=== PATIENT | male | born 1985 | race Caucasian/White ===

== ENCOUNTER 2024-03-13 10:05 | Outpatient (REF) | payer OTHER, SELFPAY ==
[2024-03-13 10:40] LABS: MANUAL DIFF FLAG NO
[2024-03-13 10:44] LABS: Basophils Percent Auto 0.5 % (0-2); Eosinophils Absolute Auto 0.1 X10*3/uL (0.0-0.4); Eosinophils Percent Auto 1.7 % (0-4); Hemoglobin 14.3 g/dl (14.0-18.0); Imm Gran Abs Auto 0.01 X10*3/uL (0.00-0.03); Imm Gran Pct Auto 0.2 % (0.0-0.4); Lymphocytes Absolute Auto 1.6 X10*3/uL (1.2-4.9); Lymphocytes Percent Auto 27.1 % (20-40); Mean Corpuscular HGB Conc 34.9 g/dl (31.0-36.0); Mean Corpuscular Hemoglobin 30.6 pg (27.0-33.0); Mean Corpuscular Volume 87.6 fL (80.0-98.0); Mean Platelet Volume 9.3 fL (9.4-12.4); Monocytes Absolute Auto 0.4 X10*3/uL (0.1-1.2); Monocytes Percent Auto 5.8 % (2-11); Neutrophils Absolute Auto 3.9 x10*3/uL (2.0-8.3); Neutrophils Percent Auto 64.7 % (45-73); Platelet Count 332 X10*3/uL (160-400); Red Blood Count 4.68 X10*6/uL (4.60-5.80); Red Cell Distribution Width 11.6 % (11.0-16.0)
[2024-03-13 11:49] LABS: Alanine Aminotransferase 27 U/L (0-40); Albumin Level 4.5 g/dL (3.5-5.0); Alkaline Phosphatase 67 U/L (39-117); Anion Gap 14 (12-20); Aspartate Amino Transferase 18 U/L (5-37); Bilirubin Total 0.3 mg/dL (0.0-1.0); Blood Urea Nitrogen 15 mg/dL (9-16); Calcium 10.4 mg/dL (8.4-10.2); Carbon Dioxide 25 mmol/L (22-29); Chloride 105 mmol/L (96-108); Cholesterol 195 mg/dL (<200); Estimated Glomerular Filt Rate > 60; Glucose Fasting 102 mg/dL (60-99); HDL Cholesterol 49 mg/dL (>40); LDL Cholesterol Calculated 133 mg/dL (<100); Potassium 4.5 mmol/L (3.3-5.1); Sodium 139 mmol/L (135-145); Total Protein 7.5 g/dL (6.5-8.0); Triglycerides 68 mg/dL (<150)
== END 2024-03-13 10:06 | disposition home or self-care (01) ==
LOC: HO.10HDL 10:05
PROVIDERS: Visit Provider Internal Medicine
DX: E78.00 Pure hypercholesterolemia, unspecified (principal); K21.9 Gastro-esophageal reflux disease without esophagitis
CPT/HCPCS: 36415; 80053; 80061; 85025

== ENCOUNTER 2025-04-13 15:08 | Outpatient (AMB) | payer OTHER, SELFPAY ==
--- NOTE | 2025-04-13 14:05 | A.OFFPC_ITS ---
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 Father No problems noted. Social History Housing: House Patient Tobacco Use Status: Never used Tobacco e-Cigarette/Vaping Use: Never Used service: No Current occupational status: employed Cognitive needs: No Hearing needs: No Vision needs: Yes (rx glasses) Questionnaire PHQ-9 Over the last 2 weeks, how often have you been bothered by any of the following problems? 1. Little interest or pleasure in doing things: not at all 2. Feeling down, depressed, or hopeless: not at all 3. Trouble falling or staying asleep, or sleeping too much: not at all 4. Feeling tired or having little energy: not at all 5. Poor appetite or overeating: not at all 6. Feeling bad about yourself - or that you are a failure or have let yourself or your family down: not at all 7. Trouble concentrating on things, such as reading the newspaper or watching television: not at all 8. Moving or speaking so slowly that other people could have noticed. Or the opposite - being so fidgety or restless that you have been moving around a lot more than usual: not at all 9. Thoughts that you would be better off or of hurting yourself in some way: not at all Total score: 0 Source: Developed by Drs. Román Fuller, Helen Juarez, Bill Mcintyre and colleagues, with an educational leslie from [employer]. Thrive Questionnaire Date Thrive assessed: 04/13/25 I am a: Patient Within the past 12 months, did the food you bought not last and you didn't have the money to get more?: Never true Within the past 12 months, did you worry whether your food would run out before you got money to buy more?: Never true Do you have trouble paying for medicines?: No Do you have trouble getting transportation to medical appointments?: No Do you have trouble paying your heating and electricity bill?: No Do you have trouble taking care of your child, family member or friend?: No Do you have trouble with day-to-day activities such as bathing, preparing meals, shopping, managing finances, etc.?: No Are you currently unemployed and looking for a job?: No THRIVE Score: 0 AUDIT C Alcohol Use Questionnaire (AUDIT-C) 1. How often do you have a drink containing alcohol?: Never 3. How often do you have six or more drinks on one occasion?: Never Total Score: 0 MADHURI-7 AMB Questionnaire MADHURI-7 Date MADHURI - 7 assessed: 04/13/25 Feeling nervous, anxious, or on edge: 0 = Not at all Not being able to stop or control worryin = Not at all Worrying too much about different things: 0 = Not at all Trouble relaxin = Not at all Being so restless that it is hard to sit still: 0 = Not at all Becoming easily annoyed or irritable: 0 = Not at all Feeling afraid as if something awful might happen: 0 = Not at all Total MADHURI-7 score (0-4 normal; 5-9 mild; 10-14 moderate; 15-21 severe): 0 Source: Developed by Drs. Román Fuller, Helen Juarez, Bill Mcintyre and colleagues, with an educational leslie from [employer]. Physical exam (Primary Care) Vital Signs: Last Vital Signs Temp 97.2 F 04/13/25 15:16 Pulse 75 04/13/25 15:16 BP 122/80 04/13/25 15:16 Pulse Ox 97 04/13/25 15:16 Oxygen Delivery Method Room Air 04/13/25 15:16 BMI result Body Mass Index 26.2 Tobacco/Smoking Status: Tobacco use Status Tobacco use date assessed 04/13/25 04/13/25 14:06 Patient Tobacco Use Status Never used Tobacco 04/13/25 14:06 e-Cigarette/Vaping Use Never Used 04/13/25 14:06 PHQ-9: PHQ-9 Score PHQ-9: Total score 0 04/13/25 15:19 Thrive Assessment: Date of Thrive Assessment Date Thrive assessed 04/13/25 04/13/25 14:06 Coding Level of Care Code New Pt Level 4 (28182) Complex EM visit Add On G2211 Diagnoses Hyperlipidemia E78.5 Assessment & Plan Assessment & Plan (1) Hyperlipidemia: Code(s): E78.5 - Hyperlipidemia, unspecified Category: Medical Plan: BW ordered. Will call with results Plan History of Present Illness - The patient is a 39-year-old male presenting for a wellness visit. - Cholesterol levels were reported as elevated during a past consultation with Dr. Davis, but follow-up was not completed. - The patient denies any symptoms or health concerns associated with elevated cholesterol. - The family history is notable for heart disease in the father and diabetes in the mother. Social History - The patient is employed as a skilled nursing professional. - The patient has a supportive family environment with four children. - The patient denies the use of tobacco products. - The patient did not report information regarding alcohol use or diet. Review of Systems - Cardiovascular: Denies chest pain, palpitations, or shortness of breath. - Endocrine: Denies issues such as polyuria or weight changes. Physical Exam General: Cooperative and healthy appearing Nutritional Appearance: Well nourished Orientation/consciousness: Patient oriented x3 Limitations: No limitations Head: Normal to inspection General: Appearance normal, both eyes and all related structures Neck: Normal visual inspection Chest: Normal palpation of entire chest wall Respiratory: Normal respiratory effort Neurology: Patient oriented x3 Results Plan 1. Hyperlipidemia - Repeat fasting lipid panel. - Instruct patient to fast after midnight before the test. - Determine further management based on results, which may include lifestyle changes or medications. - Educated patient on follow-up importance. Discussion Notes I discussed with the patient the plan to repeat the fasting cholesterol levels due to previously noted elevation. I advised him to fast after midnight before the lipid panel to ensure accurate test results. Once results are received, we will discuss further management options, including lifestyle modifications and possible medication, to effectively manage hyperlipidemia. The patient is aware of his family history and the impact it may have on his cardiovascular risk, and he understands the importance of regular monitoring. Patient Instructions - Fast (no food or drinks except water) after midnight for the blood test. - Get the fasting cholesterol test done as instructed. - Wait for a call with the test results and further instructions. - Follow up on results and management plan. Orders: Orders Basic Metabolic Panel Today E78.5 - Hyperlipidemia, unspecified Liver Panel Today E78.5 - Hyperlipidemia, unspecified Thyroid Stimulating Hormone Today E78.5 - Hyperlipidemia, unspecified Lipid Panel Today E78.5 - Hyperlipidemia, unspecified UA and rflx microscopic Today E78.5 - Hyperlipidemia, unspecified Complete Blood Count no Diff Today E78.5 - Hyperlipidemia, unspecified
[2025-04-13 15:16] VITALS: BP 122/80; PULSE 75; TEMP 36.2; O2SAT 97; BMI 26.2
--- OUTSIDE RECORDS SUMMARY | 2025-04-13 16:23 | XMS_ITS | Patient Health Record ---
Author Organization [facility] Address [address] [place] [address] Support Name Relationship Address Phone DESHAWN CASTILLO Guarantor Unknown [phone] Reason For Referral No Information Plan Of Treatment No Information Insurance Providers Payer Name Payer Address Payer Phone Subscriber Number Group Number Insured Name Patient Relationship to Insured Coverage Start Date Coverage End Date CARES Act DESHAWN CASTILLO Self - patient is the insured
== END 2025-04-13 15:52 | disposition home or self-care (01) ==
LOC: HO.HMCHD 15:09
PROVIDERS: PCP Internal Medicine; Visit Provider Internal Medicine
DX: E78.5 Hyperlipidemia, unspecified (principal)

== ENCOUNTER → 2025-04-13 15:08 | Outpatient (BNVA) | payer OTHER, SELFPAY | PROVIDERS: PCP Internal Medicine; Visit Provider Internal Medicine | DX: Z00.00 Encounter for general adult medical examination without abnormal findings (principal); E78.5 Hyperlipidemia, unspecified | CPT/HCPCS: 99202 ==

== ENCOUNTER 2025-04-15 10:24 | Outpatient (REF) | payer OTHER, SELFPAY ==
--- OUTSIDE RECORDS SUMMARY | 2025-04-15 11:02 | XMS_ITS | Patient Health Record ---
Author Organization [facility] Address [address] [place] [address] Support Name Relationship Address Phone DESHAWN CASTILLO Guarantor Unknown [phone] Reason For Referral No Information Plan Of Treatment No Information Insurance Providers Payer Name Payer Address Payer Phone Subscriber Number Group Number Insured Name Patient Relationship to Insured Coverage Start Date Coverage End Date CARES Act DESHAWN CASTILLO Self - patient is the insured
[2025-04-15 12:33] LABS: Appearance Urine Clear; Color Urine Yellow; Glucose Urine UA Negative (Negative); Hematocrit 39.5 % (42.0-52.0); Hemoglobin 14.1 g/dl (14.0-18.0); Leukocyte Esterase Urine Negative (Negative); Mean Corpuscular HGB Conc 35.7 g/dl (31.0-36.0); Mean Corpuscular Hemoglobin 30.5 pg (27.0-33.0); Mean Corpuscular Volume 85.3 fL (80.0-98.0); Mean Platelet Volume 9.7 fL (9.4-12.4); Nitrite Urine Negative (Negative); PH 6.5 (5.0-9.0); Platelet Count 263 X10*3/uL (160-400); Red Blood Count 4.63 X10*6/uL (4.60-5.80); Red Cell Distribution Width 11.4 % (11.0-16.0); Specific Gravity - Urine 1.025 (1.005-1.025); UMIC TRIGGER UA YES; Urine Blood Trace (Negative); Urine Ketones Negative (Negative); Urine Protein Negative (Neg-Trace); White Blood Count 5.9 X10*3/uL (4.8-10.8)
[2025-04-15 12:38] LABS: Bacteria Urine None Seen (None Seen); Hyaline Casts Urine 0-2 /LPF (0-2); Squamous Epithelial Cell Urine 0-2 /HPF (0-2); WBC Urine 0-5 /HPF (0-5)
[2025-04-15 15:05] LABS: Thyroid Stimulating Hormone 1.22 uIU/mL (0.32-4.0)
[2025-04-15 15:08] LABS: Anion Gap 9 (12-20)
[2025-04-15 15:13] LABS: Alanine Aminotransferase 37 U/L (0-40); Albumin Level 4.7 g/dL (3.5-5.0); Alkaline Phosphatase 56 U/L (39-117); Aspartate Amino Transferase 27 U/L (5-37); Bilirubin Direct 0.1 mg/dL (0.0-0.5); Bilirubin Total 0.5 mg/dL (0.0-1.0); Blood Urea Nitrogen 18 mg/dL (9-16); Calcium 9.5 mg/dL (8.4-10.2); Carbon Dioxide 28 mmol/L (22-29); Chloride 106 mmol/L (96-108); Cholesterol 214 mg/dL (<200); Estimated Glomerular Filt Rate > 60; Glucose Random 99 mg/dL (60-115); HDL Cholesterol 53 mg/dL (>40); LDL Cholesterol Calculated 148 mg/dL (<100); Potassium 4.2 mmol/L (3.3-5.1); Sodium 139 mmol/L (135-145); Total Protein 7.4 g/dL (6.5-8.0); Triglycerides 66 mg/dL (<150)
== END 2025-04-15 10:25 | disposition home or self-care (01) ==
LOC: HO.10HDL 10:24
PROVIDERS: Visit Provider Internal Medicine
DX: E78.5 Hyperlipidemia, unspecified (principal)
CPT/HCPCS: 36415; 80048; 80061; 80076; 81001; 84443; 85027

== ENCOUNTER 2025-05-05 15:37 | Outpatient (AMB) | payer OTHER, SELFPAY ==
--- NOTE | 2025-05-05 14:58 | MHC.PC.OV ---
Intake Visit Reasons: Discuss medication Natural Resources Specialist Required: No Allergies No Known Allergies Allergy (Verified 05/05/25 14:58) Tobacco use date assessed: 04/13/25 Dental Screening Dental Screen Date: 04/13/25 HPI Discuss medication HPI Details 39 yr old male wishes to discuss his health via telehealth. Recent bw shows elevated cholesterol. Patient is hesitating to start statins due to his younger age. Non smoker, does not consume alcohol. Family history positive for CAD with father having an acute ND at age 45 PFSH Medical History Hyperlipidemia Family History Mother No problems noted. Father No problems noted. Social History Housing: House Patient Tobacco Use Status: Never used Tobacco e-Cigarette/Vaping Use: Never Used service: No Current occupational status: employed Cognitive needs: No Hearing needs: No Vision needs: Yes (rx glasses) Questionnaire PHQ-9 Over the last 2 weeks, how often have you been bothered by any of the following problems? 1. Little interest or pleasure in doing things: not at all 2. Feeling down, depressed, or hopeless: not at all 3. Trouble falling or staying asleep, or sleeping too much: not at all 4. Feeling tired or having little energy: not at all 5. Poor appetite or overeating: not at all 6. Feeling bad about yourself - or that you are a failure or have let yourself or your family down: not at all 7. Trouble concentrating on things, such as reading the newspaper or watching television: not at all 8. Moving or speaking so slowly that other people could have noticed. Or the opposite - being so fidgety or restless that you have been moving around a lot more than usual: not at all 9. Thoughts that you would be better off or of hurting yourself in some way: not at all Total score: 0 Source: Developed by Drs. Román Fuller, Helen Juarez, Bill Mcintyre and colleagues, with an educational leslie from [employer]. Thrive Questionnaire Date Thrive assessed: 06/02/25 I am a: Patient Within the past 12 months, did the food you bought not last and you didn't have the money to get more?: Never true Within the past 12 months, did you worry whether your food would run out before you got money to buy more?: Never true Do you have trouble paying for medicines?: No Do you have trouble getting transportation to medical appointments?: No Do you have trouble paying your heating and electricity bill?: No Do you have trouble taking care of your child, family member or friend?: No Do you have trouble with day-to-day activities such as bathing, preparing meals, shopping, managing finances, etc.?: No Are you currently unemployed and looking for a job?: No THRIVE Score: 0 AUDIT C Alcohol Use Questionnaire (AUDIT-C) 1. How often do you have a drink containing alcohol?: Never 3. How often do you have six or more drinks on one occasion?: Never Total Score: 0 MADHURI-7 AMB Questionnaire MADHURI-7 Date MADHURI - 7 assessed: 04/13/25 Feeling nervous, anxious, or on edge: 0 = Not at all Not being able to stop or control worryin = Not at all Worrying too much about different things: 0 = Not at all Trouble relaxin = Not at all Being so restless that it is hard to sit still: 0 = Not at all Becoming easily annoyed or irritable: 0 = Not at all Feeling afraid as if something awful might happen: 0 = Not at all Total MADHURI-7 score (0-4 normal; 5-9 mild; 10-14 moderate; 15-21 severe): 0 Source: Developed by Drs. Román Fuller, Helen Juarez, Bill Mcintyre and colleagues, with an educational leslie from [employer]. Physical exam (Primary Care) Tobacco/Smoking Status: Tobacco use Status Tobacco use date assessed 04/13/25 05/05/25 15:21 Patient Tobacco Use Status Never used Tobacco 05/05/25 15:21 e-Cigarette/Vaping Use Never Used 05/05/25 15:21 PHQ-9: PHQ-9 Score PHQ-9: Total score 0 05/05/25 15:21 Thrive Assessment: Date of Thrive Assessment Date Thrive assessed 04/13/25 05/05/25 15:21 Telehealth Telehealth Telehealth Platform: Telephone Location of provider rendering services: practice address Location of patient: address on file Patient Identification confirmed using: Name, : Yes Telehealth method: voice only Patient verbally consented to treatment: Yes Patient verbally consented to billing insurance company: Yes Patient informed of any privacy concerns related to visit: Yes Minutes spent on Phone/Video with Pt.: 15 Results Reviewed Results Reviewed: Lab work Coding Level of Care Code Tele Est Pt Level 3 (99266) Complex EM visit Add On G2211 Diagnoses Hyperlipidemia E78.5 Assessment & Plan Assessment & Plan (1) Hyperlipidemia: Code(s): E78.5 - Hyperlipidemia, unspecified Category: Medical Plan: Patient declined to start statins. Counselling on the importance of diet and exercise done
--- OUTSIDE RECORDS SUMMARY | 2025-05-05 18:46 | XMS_ITS | Patient Health Record ---
Author Organization [facility] Address [address] [[email or web address] [place] [address] Support Name Relationship Address Phone DESHAWN CASTILLO Guarantor Unknown [phone] Reason For Referral No Information Plan Of Treatment No Information Insurance Providers Payer Name Payer Address Payer Phone Subscriber Number Group Number Insured Name Patient Relationship to Insured Coverage Start Date Coverage End Date CARES Act DESHAWN CASTILLO Self - patient is the insured
== END 2025-05-05 16:44 | disposition home or self-care (01) ==
LOC: HO.HMCSH 15:37
PROVIDERS: PCP Internal Medicine; Visit Provider Internal Medicine
DX: E78.5 Hyperlipidemia, unspecified (principal)

== ENCOUNTER → 2025-05-05 15:37 | Outpatient (BNVA) | payer OTHER, SELFPAY | PROVIDERS: PCP Internal Medicine; Visit Provider Internal Medicine | DX: Z13.89 Encounter for screening for other disorder (principal) ==